=== PATIENT | male | born 1985 | race Caucasian/White ===

== ENCOUNTER 2018-11-29 15:17 | Emergency (ER) | payer MEDICAID ==
[2018-11-29 15:17] VITALS: BP 127/80
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
[2018-11-29] MEDS ORDERED: HYDR-3165 PO (17:00)
[2018-11-29] MEDS ORDERED: ORPH-16 PO (17:00)
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
== END 2018-11-29 17:20 | disposition home or self-care (01) ==
LOC: ER 15:17
DX: S16.1XXA Strain of muscle, fascia and tendon at neck level, initial encounter (principal); S09.90XA Unspecified injury of head, initial encounter; V49.49XA Driver injured in collision with other motor vehicles in traffic accident, initial encounter; Y93.I9 Activity, other involving external motion; Y92.488 Other paved roadways as the place of occurrence of the external cause; Y99.8 Other external cause status
CPT/HCPCS: 70450; 72125; 99284-25

== ENCOUNTER 2019-10-15 07:18 | Emergency (ER) | payer OTHER ==
[~2019-10-15] VITALS: Ht 165.1 cm; Wt 72.0 kg
[~2019-10-15 07:18] MED LIST: HYDR-3165 PO; ORPH-16 PO
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
[2019-10-15] MEDS ORDERED: CYCLOBENZAPRINE 10 MG TABLET. PO ONE (07:45)
[2019-10-15] MEDS ORDERED: NEOMY/BACITR/POLYMYXIN OINT PACKET. TP ONE (07:45)
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
[2019-10-15] MEDS ORDERED: SULF1TAB24 PO (08:51)
[2019-10-15] MEDS ORDERED: IBUP600T16 PO (08:51)
== END 2019-10-15 09:01 | disposition home or self-care (01) ==
LOC: ER 07:18
DX: S11.91XA Laceration without foreign body of unspecified part of neck, initial encounter (principal); T79.7XXA Traumatic subcutaneous emphysema, initial encounter; W21.89XA Striking against or struck by other sports equipment, initial encounter; Y93.89 Activity, other specified; Y92.89 Other specified places as the place of occurrence of the external cause; Y99.8 Other external cause status
CPT/HCPCS: 70450; 72125; 99285-25